=== PATIENT | female | born 1995 | race Caucasian/White ===

== ENCOUNTER 2017-02-25 14:39 | Emergency (ER) | payer BC ==
[2017-02-25 15:29] LABS: #Basophils 0.1 thou/uL (0.0-0.2); #Eosinphils 0.1 thou/uL (0.0-0.7); #Lymphocytes 2.4 thou/uL (1.20-3.40); #Monocytes 0.4 thou/uL (0.11-0.59); #Neutrophils 3.9 thou/uL (1.40-6.50); %Basophils 0.9 % (0.0-1.0); %Eosinophils 1.3 % (0.0-10.0); %Monocytes 5.3 % (0.0-4.0); Hematocrit 36.8 % (36.0-47.0); Mean Platelet Volume 6.9 fL (7.4-10.4); White Blood Cell (WBC) Count 6.8 thou/uL (4.8-10.8)
[2017-02-25 15:38] LABS: PTT 30.3 SEC (22.9-36.1); Prothrombin Time 14.6 SEC (12.0-14.7)
[2017-02-25 15:47] LABS: ALT (SGPT) 20 U/L (8-55); AST (SGOT) 22 U/L (5-34); Alkaline Phosphatase 62 U/L (40-150); Anion Gap 14 mmol/L (10-20); BUN (Urea Nitrogen) 15 mg/dL (7.0-18.7); Bilirubin, Total 0.2 mg/dL (0.2-1.2); Calc. Creatinine Clearance 0 mL/min (70-130); Calcium 9.5 mg/dL (7.8-10.44); Carbon Dioxide 24 mmol/L (22-29); Chloride 107 mmol/L (98-107); Estimated GFR-MDRD Greater than 90; Globulin 3.3 g/dL (2.4-3.5); Protein, Total 7.5 g/dL (6.0-8.3)
--- NOTE | 2017-02-25 17:40 | CT ---
CT PULMONARY ANGIOGRAM WITH IV CONTRAST AND 3D POSTPROCESSING: HISTORY: Chest pain. 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 FINDINGS: There is good contrast opacification of the pulmonary arterial vasculature without filling defects to suggest pulmonary embolism. The thoracic aorta demonstrates no evidence of aneurysm or dissection. No pleural or pericardial effusions are seen. A thymic remnant is present. No pneumothorax, lobar consolidation, or lung masses are identified. There is a mild infiltrate in the lingula. The trache obronchial tree is patent. No acute osseous abnormalities are seen. IMPRESSION: No CT evidence of pulmonary embolism. POS: [facility]
== END 2017-02-25 16:36 | disposition home or self-care (01) ==
LOC: SCSER 14:39
DX: R91.8 Other nonspecific abnormal finding of lung field (principal); R07.9 Chest pain, unspecified
CPT/HCPCS: 71275; 80053; 84703; 85025; 85610; 85730; 93005